=== PATIENT | male | born 1980 | race Caucasian/White ===

== ENCOUNTER 2017-07-26 10:15 | Emergency (ER) | payer BC ==
[2017-07-26] MEDS ORDERED: NS 1,000 ML IV ONE (10:46)
[2017-07-26] MEDS ORDERED: ONDANSETRON 4 MG/2 ML VIAL IVP ONE (10:46)
[2017-07-26] MEDS ORDERED: HYDROmorphONE/DILAUDID 1 MG/ML INJ IVP ONE (10:46)
[2017-07-26] MEDS ORDERED: HYDROmorphONE/DILAUDID 1 MG/ML INJ ONE (10:46)
[2017-07-26 10:55] LABS: PLATELET COUNT 276 10^3/uL (150-400)
[2017-07-26 11:07] VITALS: RESP 18
[2017-07-26] MEDS ORDERED: KETOROLAC 15 MG/1 ML SDV ONE (12:09)
[2017-07-26] MEDS ORDERED: KETOROLAC 30 MG/1 ML SDV IVP ONE (12:09)
--- NOTE | 2017-07-26 12:22 | EDPHY ---
H & P Time Seen by Provider: 07/26/17 10:46 HPI/ROS: HPI Right-sided back pain. 36-year-old male by private vehicle with family. Patient reports that at 9:20 a.m. this morning he woke up with right-sided lower flank pain with some radiation to the right lower quadrant of his abdomen. He describes this pain is coming on intermittently in extreme waves. He describes it as deep and cramping. Denies any hematuria. He has not had any fever. No urinary complaints. No prior history of kidney stones. ROS: Constitutional: No fever, no chills. No weakness. Eyes: No discharge. No changes in vision. ENT: No sore throat. No nasal congestion or rhinorrhea. Respiratory: No cough. No shortness of breath. Cardiac: No chest pain, no palpitations. Gastrointestinal: As above, no vomiting, no diarrhea. Genitourinary: No hematuria. No dysuria or increased frequency with urination. No testicular pain. Musculoskeletal: As above. No neck pain. No myalgias or arthralgias. Skin: No rashes. Neurological: No headache. No focal weakness or altered sensation. Past medical history: Transgender, no significant past medical history otherwise. Social history: Nonsmoker. Here with family. No alcohol. Physical Exam: General Appearance: Alert, appears uncomfortable. This patient is responding to questions appropriately and in full sentences. This patient appears well- hydrated and well-nourished. Eyes: Pupils equal and round no pallor or injection. No lid edema, erythema or injection. Respiratory: There are no retractions, lungs are clear to auscultation with good air movement bilaterally. Cardiovascular: Regular rate and rhythm. No murmur. Gastrointestinal: Moderately obese habitus. Abdomen is soft and nontender, no masses, bowel sounds normal. No focal tenderness at McBurney's point. No Sauceda sign. Neurological: Motor sensory function is grossly intact. Cranial nerves are normal. Gait is normal. Skin: Warm and dry, no rashes. Musculoskeletal: Neck is supple and nontender. Vague right-sided CVA tenderness on palpation. No left-sided CVA tenderness on palpation. No soft tissue changes on gross inspection of the back. Extremities are symmetrical. All joints range without pain or impingement. Psychiatric: No agitation. No depression. Database: EKG: Imaging: CT scan of abdomen and pelvis without contrast: No evidence of ureterolithiasis. No kidney stones. The appendix is well visualized and is normal. Results were discussed with staff radiologist Dr. Fausto Call. Procedures: Emergency department course: Vital signs reviewed and are normal. IV was placed. He was started on IV normal saline with 1 L to be given over 1 hr. He was initially given 1 mg of IV hydromorphone and 4 mg of IV Zofran. 12:30 p.m., patient re-evaluated. Comfortable at this time. States his pain is still present at a low level. Repeat abdominal exam is soft, nontender nondistended. I discussed the results of his CT imaging and lab work. He was given 30 mg of IV Toradol. No contraindications to NSAIDs. 1:00 p.m., patient re-evaluated. Pain is completely resolved. He has been up and ambulatory to the bathroom. He has no complaints at this time. Repeat abdominal exam is soft, nontender nondistended. He feels comfortable going home with family. Follow-up and return to emergency department precautions reviewed with him. All of his questions were answered. He was discharged in good condition. Differential Diagnosis: The differential diagnosis on this patient includes but is not limited to colitis, musculoskeletal lower back pain. Ureterolithiasis, appendicitis, colitis, epidural compression syndrome, testicular torsion, acute radiculopathy , epidural abscess, AAA unlikely. This represents a partial list of diagnoses considered. These considerations are based on history, physical exam, past history, reassessment and diagnostic testing. Smoking Status: Never smoked Constitutional: Initial Vital Signs Temperature (C) 36.5 C 07/26/17 10:16 Heart Rate 88 07/26/17 10:16 Respiratory Rate 24 H 07/26/17 10:16 Blood Pressure 163/139 H 07/26/17 10:16 O2 Sat (%) 92 07/26/17 10:16 O2 Delivery Mode Room Air Allergies/Adverse Reactions: No Known Allergies Allergy (Unverified 07/26/17 10:20) Home Medications: Medication Instructions Recorded Lisinopril 07/26/17 Medical Decision Making - Data Points Laboratory Results: Laboratory Results 07/26/17 10:45 07/26/17 10:45 Microbiology Results: MICROBIOLOGY 07/26/17 10:35 Unspecified Urine Culture - Preliminary Five Or More [place] Types Medications Given: Discontinued Medications Hydromorphone HCl (Dilaudid) 1 mg IVP EDNOW ONE Stop: 07/26/17 10:47 Last Admin: 07/26/17 10:48 Dose: 1 mg Sodium Chloride (Ns) 1,000 mls @ 0 mls/hr IV EDNOW ONE; Wide Open PRN Reason: Protocol Stop: 07/26/17 10:47 Last Admin: 07/26/17 10:51 Dose: 1,000 mls Ketorolac Tromethamine (Toradol) 30 mg IVP EDNOW ONE Stop: 07/26/17 12:10 Last Admin: 07/26/17 12:11 Dose: 30 mg Ondansetron HCl (Zofran) 4 mg IVP EDNOW ONE Stop: 07/26/17 10:47 Last Admin: 07/26/17 10:50 Dose: 4 mg Departure - Departure Disposition: Home, Routine, Self-Care Clinical Impression: Lower back pain Condition: Good Instructions: Back Pain (ED) Additional Instructions: Read and follow provided instructions. Follow-up with your primary care physician next week for re-evaluation. Take medication as prescribed. You can start taking ibuprofen tomorrow morning. Ibuprofen dosin mg every 6 hours with meals for the next 3 days only. Take only as needed for pain. Return to the emergency department for worsening pain, persistent pain, fever, vomiting or other serious concerns. Referrals: ALLI ESPINO [Primary Care Provider] - As per Instructions
[2017-07-26 12:55] VITALS: BP 129/74; PULSE 82; TEMP 98.4; O2SAT 95
== END 2017-07-26 13:40 | disposition home or self-care (01) ==
LOC: EDSEX 10:15
DX: M54.5 Low back pain (principal); E86.9 Volume depletion, unspecified
CPT/HCPCS: 96374; J1170; J1885; J2405